=== PATIENT | male | born 1960 | race Caucasian/White ===

== ENCOUNTER → 2016-08-17 | Outpatient (CLI) | payer OTHER | END | disposition home or self-care (01) | LOC: GMAB 14:13 | PROVIDERS: ATTEND Family Medicine | DX: Z00.00 Encounter for general adult medical examination without abnormal findings (principal); R20.2 Paresthesia of skin ==

== ENCOUNTER → 2017-06-27 | Outpatient (CLI) | payer OTHER ==
--- NOTE | 2017-06-28 07:16 | RAD ---
EXAM DESCRIPTION: Pelvis CLINICAL HISTORY: 56 years Male, PAIN IN RIGHT HIP COMPARISON: None. FINDINGS: Single AP view the pelvis shows no displaced pelvic fracture. There is severe right hip joint space narrowing with jowj-zz-yuux or near lkfr-qm-yrra alignment and subcortical cyst formation in the right acetabular roof and femoral head. There is mild to moderate left hip joint space narrowing. The sacroiliac joints are unremarkable. IMPRESSION: Advanced degenerative changes in the right hip including severe joint space narrowing with yrei-jh-[id number] or near bbpp-xu-hmbp alignment. Electronically signed by: Arnulfo Jordan MD 06/28/2017 7:15 AM [facility]
--- NOTE | 2017-06-28 07:18 | RAD ---
EXAM DESCRIPTION: Hip,Right 2 Views CLINICAL HISTORY: 56 years Male, PAIN IN RIGHT HIP COMPARISON: None. FINDINGS: 2 views of the right hip show no acute fracture or malalignment. There is severe right hip joint space narrowing with allw-rn-pqzs alignment superiorly. Subcortical sclerosis and cyst formation are noted in the right acetabular roof and femoral head. The femoral head contour is fairly well-maintained. No soft tissue abnormality. IMPRESSION: Severe degenerative changes in the right hip as detailed above including rnmd-ci-vdoq alignment. Electronically signed by: Arnulfo Jordan MD 06/28/2017 7:17 AM [facility]
== END ==
LOC: RAD 09:18
PROVIDERS: ATTEND Orthopaedic Surgery
DX: M25.551 Pain in right hip (principal); M12.851 Other specific arthropathies, not elsewhere classified, right hip

== ENCOUNTER → 2017-08-02 | Outpatient (CLI) | payer OTHER | LOC: GMAB 12:04 | PROVIDERS: ATTEND Family Medicine | DX: Z00.00 Encounter for general adult medical examination without abnormal findings (principal) ==

== ENCOUNTER 2018-03-22 05:37 | Day surgery (SDC) | payer OTHER ==
[2018-03-22] MEDS ORDERED: LACTATED RINGERS 1,000 ML ONE (05:57)
[2018-03-22] MEDS ORDERED: LIDOCAINE 1% 10 ML VIAL INJ ONE (07:00)
[2018-03-22] MEDS ORDERED: PROPOFOL 200 MG/20 ML VIAL IV ONE (07:00)
[2018-03-22 09:13] VITALS: BP 136/69; TEMP 97.7; O2SAT 99
--- NOTE | 2018-03-22 09:22 | OP ---
DATE OF PROCEDURE: 03/22/18 PREPROCEDURE DIAGNOSIS: 1. Screening for colorectal cancer. High risk given family history of colon cancer. POSTPROCEDURE DIAGNOSIS: 1. Internal hemorrhoids. PROCEDURE: 1. Colonoscopy. SURGEON: Dean Potts MD COMPLICATIONS: No complications. SEDATION: The patient was sedated via IV propofol by the Anesthesia Department. CONSENT: Prior to the procedure, risks, benefits and alternatives to the therapy were discussed with the patient. The risks included bleeding, infection , perforation and . The patient agreed to the procedure and signed a consent. PREPROCEDURE ANESTHESIA ASSESSMENT: An examination revealed no contraindication to sedation. Airway examination demonstrated a Mallampati class type 2, ASA grade assessment type 2. Throughout the procedure, the patient's blood pressure and other vitals were closely monitored. PROCEDURE: The patient was placed in the left lateral decubitus position and a rectal examination was performed. The rectal examination was within normal limits. The Olympus colonoscope was passed in the anus, rectum, traversing the colon to the level of the cecum and terminal ileum as identified by the appendiceal orifice and ileocecal valve as well as terminal ileum. The scope was retracted and the mucosa was visualized. The entirety of the exam was performed with direct visualization. Retroflexion was performed in the rectum. Preparation quality was good. The withdrawal time was greater than 6 minutes. The patient tolerated the procedure well. FINDINGS: 1. Large, non-bleeding internal hemorrhoids were found in retroflexion. Otherwise, normal examination of the colon. 2. Normal terminal ileum. RECOMMENDATION: 1. Return the patient home. 2. Resume previous diet. 3. Repeat colonoscopy in the subsequent 5 years. 4. Fecal occult blood testing and/or Cologuard on yearly basis or in 3 years' time per primary care physician. 5. Schedule upper endoscopy for dilation at the convenience of the patient. #[id number] [facility]
== END 2018-03-22 08:55 | disposition home or self-care (01) ==
LOC: AMB 05:37
PROVIDERS: ATTEND Internal Medicine Gastroenterology
DX: Z12.11 Encounter for screening for malignant neoplasm of colon (principal); K64.8 Other hemorrhoids; R13.10 Dysphagia, unspecified; Z80.0 Family history of malignant neoplasm of digestive organs; Z79.899 Other long term (current) drug therapy
CPT/HCPCS: 00812; 45378; J3490; J7120

== ENCOUNTER 2018-07-14 05:32 | Day surgery (SDC) | payer OTHER ==
[2018-07-14] MEDS ORDERED: LACTATED RINGERS 1,000 ML ONE (06:57)
[2018-07-14] MEDS ORDERED: PROPOFOL 200 MG/20 ML VIAL IV ONE (07:00)
[2018-07-14] MEDS ORDERED: LIDOCAINE 1% 10 ML VIAL INJ ONE (07:00)
--- NOTE | 2018-07-14 09:22 | OP ---
DATE OF PROCEDURE: 07/14/18 PREPROCEDURE DIAGNOSIS: 1. Followup with severe LA Grade C esophagitis, rule out intestinal metaplasia, rule out Leal's esophagus. 2. Large hiatal hernia. POSTPROCEDURE DIAGNOSIS: 1. Followup with severe LA Grade C esophagitis, rule out intestinal metaplasia, rule out Leal's esophagus. 2. Large hiatal hernia. PROCEDURE: 1. Esophagogastroduodenoscopy. SURGEON: Dean Potts MD COMPLICATIONS: No immediate complications. SEDATION: The patient was sedated via IV propofol by the Anesthesia Department. CONSENT: Prior to the procedure, risks, benefits and alternatives to the therapy were discussed with the patient. The risks included bleeding, infection, perforation and . The patient agreed to the procedure and signed a consent. PREPROCEDURE ANESTHESIA ASSESSMENT: An examination revealed no contraindication to sedation. Airway examination demonstrated a Mallampati class type 2, ASA grade assessment type 2. Throughout the procedure, the patient's vitals were closely monitored. PROCEDURE: The patient was placed in the left lateral decubitus position. Bite block was placed in the mouth between the teeth. The Olympus endoscope was introduced through the oropharynx, esophagus, stomach and the second portion of the duodenum. The scope was retracted and the mucosa visualized. The entirety of the exam was performed under direct visualization. Retroflexion was performed in the stomach. The patient tolerated the procedure well. FINDINGS: 1. A large hiatal hernia was found in the distal esophagus. Diaphragmatic pinch was found at 42 cm and gastric fold at 37 cm. 2. Complete healing of previously seen esophagitis. 3. Irregular Z-line was found at 37 cm with a small salmon-colored mucosa tongue extending 1 cm from the Z-line, between 36 cm and 37 cm at radial 10. Biopsies were obtained with cold forceps to rule out intestinal metaplasia. 4. Otherwise, the esophagus was unremarkable. 5. The stomach was normal. 6. The duodenum was normal. RECOMMENDATION: 1. Return the patient home. 2. Resume previous diet. 3. Reinforced GERD lifestyle recommendations. 4. Continue present medications including omeprazole 20 mg p.o. b.i.d. and decrease to once daily in the subsequent few weeks. 5. The findings and recommendations were discussed with the patient and family members. 6. Return to my office in one year. #[id number] [facility]
[2018-07-14 10:16] VITALS: BP 123/76; TEMP 97.3; O2SAT 95
== END 2018-07-14 10:30 | disposition home or self-care (01) ==
LOC: AMB 05:32
PROVIDERS: ATTEND Internal Medicine Gastroenterology
DX: K21.0 Gastro-esophageal reflux disease with esophagitis (principal); K29.70 Gastritis, unspecified, without bleeding; K44.9 Diaphragmatic hernia without obstruction or gangrene; Z79.899 Other long term (current) drug therapy
CPT/HCPCS: 00731; 43239; J3490; J7120